=== PATIENT | female | born 1990 | race Caucasian/White ===

== ENCOUNTER 2018-08-21 21:49 | Emergency (ER) | payer OTHER ==
[~2018-08-21] VITALS: Ht 162.6 cm; Wt 90.6 kg
[2018-08-22] MEDS ORDERED: AMOXICILLIN875 MG PO (03:15)
[2018-08-22 03:39] VITALS: BP 101/51
== END 2018-08-22 03:40 | disposition home or self-care (01) ==
LOC: ER 21:49
DX: T16.2XXA Foreign body in left ear, initial encounter (principal); X58.XXXA Exposure to other specified factors, initial encounter